=== PATIENT | female | born 1940 | race Caucasian/White ===

== ENCOUNTER → 2016-09-01 | Outpatient (CLI) | payer MEDICARE, BC ==
--- NOTE | 2016-09-01 16:37 | RAD ---
AP and lateral left foot radiographs 09/01/2016 Clinical history: Medial left foot pain for one month. AP and lateral digital radiographs of the left foot were obtained. There is diffuse osteopenia of the visualized bony structures. No fracture or dislocation of the left foot is seen. Mild to moderate degenerative changes are seen scattered throughout the interphalangeal joints of the left foot. Moderate enthesophyte formation is seen involving the posterior left calcaneus. Impression: Degenerative changes are seen involving the left foot as outlined above. No acute osseous abnormality is seen.
== END | disposition home or self-care (01) ==
LOC: DXRADRC 11:09
PROVIDERS: ATTEND Physician Assistant Medical
DX: M19.072 Primary osteoarthritis, left ankle and foot (principal); M85.80 Other specified disorders of bone density and structure, unspecified site
CPT/HCPCS: 73620

== ENCOUNTER → 2017-03-02 | Outpatient (CLI) | payer MEDICARE, BC ==
[2017-03-02 10:39] LABS: BACTERIA,URINE FEW /HPF (0-FEW); BILIRUBIN,URINE NEG (NEG); CLARITY,URINE BLOODY; COLOR,URINE RED; GLUCOSE,URINE NEG (NEG); NITRITE,URINE NEG (NEG); RBC,URINE TNTC /HPF (0-2); SQUAMOUS EPITHELIAL CELL,UR OCC /LPF; UROBILINOGEN,URINE 0.2 mg/dL (0.2 mg/dL)
== END | disposition home or self-care (01) ==
LOC: LAB 09:30
PROVIDERS: ATTEND Family Medicine
DX: R30.0 Dysuria (principal)
CPT/HCPCS: 81001; 87086

== ENCOUNTER → 2019-05-02 | Outpatient (CLI) | payer MEDICARE, BC ==
--- NOTE | 2019-05-02 16:25 | RAD ---
CHEST PA LATERAL History: Cough, low-grade fever Comparison: None available Findings: 2 views of the chest are submitted. There are left axillary clips. Heart size is within normal limits. There is no dependent pleural fluid or pneumothorax. There is no lobar consolidation. There is mild reticular opacity of the mid and inferior right hemithorax. Impression: 1. No lobar consolidation is identified by radiograph. There is some reticular opacity on the right, may be component of mild fibrotic change and/or atelectasis. Electronically signed by: Jim Duke MD (05/02/2019 4:22 PM) [id number]
== END | disposition home or self-care (01) ==
LOC: PMG 15:13
PROVIDERS: ATTEND Physician Assistant
DX: R05 Cough (principal); R50.9 Fever, unspecified
CPT/HCPCS: 71046

== ENCOUNTER → 2020-01-25 | Outpatient (CLI) | payer MEDICARE, BC ==
--- NOTE | 2020-01-25 08:32 | RAD ---
EXAM: Abdomen sonogram. HISTORY: Pain. TECHNIQUE: Sonographic imaging of the abdomen was performed. COMPARISON: None. FINDINGS: The liver is normal in size. There is hepatic steatosis. No focal hepatic lesion is seen. There is a phrygian cap within the gallbladder, a normal variant. The gallbladder is otherwise unremarkable. The right kidney is normal in size. The pancreas is obscured due to bowel gas. The inferior cava is patent. IMPRESSION: 1. Hepatic steatosis. 2. Obscured pancreas due to bowel gas. Electronically signed by: Venice Castanon MD (01/25/2020 8:29 AM) [id number]
== END ==
LOC: US 07:38
PROVIDERS: ATTEND Physician Assistant Medical
DX: K76.0 Fatty (change of) liver, not elsewhere classified (principal)
CPT/HCPCS: 76705

== ENCOUNTER → 2020-03-04 | Outpatient (CLI) | payer MEDICARE, BC ==
--- NOTE | 2020-03-08 19:48 | RAD ---
Examination: MG DIGITAL MAMMO SCREENING UNILT+AMELIA History: Reason: SCREENING MAMMOGRAM 3D /left mastectomy: Comparison/Correlation: 02/21/2015, 02/27/2016, 03/02/2018, 03/03/2019 Technique: Routine right digital mammogram views were obtained. CAD was utilized. Tomosynthesis utili zed. Findings: Breast Tissue Density B : There are scattered areas of fibroglandular density. There are no dominant masses, suspicious microcalcifications, or architectural distortion. IMPRESSION: No mammographic evidence of malignancy. Recommend routine screening. BI-RADS category 1: Negative. The images were reviewed with computer aided detection. Patient information is entered into the reminder system with a target due date for the next screening mammogram. Mammography is the most sensitive method for finding small breast cancers, but it does not detect the m all and is not a substitute for careful clinical examination. A negative mammogram does not negate a clinically suspicious finding and should not result in delay in biopsying a clinically suspicious a bnormality. "Our facility is accredited by the [employer] Mammography Program." Electronically signed by: Donald Jett MD (03/08/2020 7:45 PM) [id number]
== END ==
LOC: MAMMO 10:07
PROVIDERS: ATTEND Physician Assistant Medical
DX: Z12.31 Encounter for screening mammogram for malignant neoplasm of breast (principal)
CPT/HCPCS: 77063; 77067

== ENCOUNTER → 2020-04-26 | Outpatient (CLI) | payer MEDICARE, BC ==
--- NOTE | 2020-04-26 09:54 | RAD ---
XR RIBS MIN 3 VIEWS LT W/PA CHEST 04/26/2020 9:05 AM INDICATION: Left-sided chest pain 1 week. History of breast cancer for 20 years COMPARISON: Chest radiograph 05/02/2019 TECHNIQUE: Portable frontal view of the chest is provided. 3 views the left ribs are provided. FINDINGS: The cardiomediastinal silhouette is within normal limits. There is a new small left pleural effusion with adjacent compressive atelectasis versus infiltrate. Patchy nodular airspace disease identified i n the left midlung. Further characterization with chest CT could be of benefit. Left axillary clips a re noted. No pulmonary vascular congestion or pneumothorax. No suspicious osseous abnormality. No acutely displaced left-sided rib fracture. IMPRESSION: 1. Small pleural effusion with adjacent compressive atelectasis versus infiltrate. Patchy nodular air space disease identified in the left midlung. Further evaluation with chest CT is recommended with co ntrast. 2. No acutely left-sided rib fracture. Electronically signed by: Solange Patel MD (04/26/2020 9:52 AM) [facility]
== END ==
LOC: PMG 08:54
PROVIDERS: ATTEND Nurse Practitioner Family
DX: J90 Pleural effusion, not elsewhere classified (principal)
CPT/HCPCS: 71101

== ENCOUNTER → 2020-04-30 | Outpatient (CLI) | payer MEDICARE, BC ==
[~2020-04-30] MED LIST: IOHEXOL 300 MG/ML 75 ML VIAL. IV ONE
--- NOTE | 2020-05-01 06:17 | RAD ---
PQRS Compliance Statement: One or more of the following individualized dose reduction techniques were utilized for this examinat ion: 1. Automated exposure control 2. Adjustment of the mA and/or kV according to patient size 3. Use of iterative reconstruction technique CT THORAX WO/W 04/30/2020 3:35 PM Indication: Left-sided chest pain. History of breast cancer 20 years ago. COMPARISON: Chest radiograph 04/26/2020 TECHNIQUE: Multiple axial CT images of the chest were obtained before and after the administration of 75 cc nonionic contrast. Coronal and sagittal reformats are provided. FINDINGS: Thyroid gland is normal in appearance. Nonenlarged mediastinal lymph nodes are present. Calcified lef t hilar lymph nodes suggest sequela prior granulomatous exposure. Left superior mediastinal lymph nod e measures 6 mm (series 7, image 7). Heart size within normal limits. There is no pericardial effusio n. Ascending thoracic aorta is ectatic measuring up to 4.0 cm. Thoracic esophagus is normal in appear ance. Visualized portions of the upper abdomen are normal. No suspicious osseous abnormality. No acut jaguar displaced left-sided rib fracture. There is a moderate sized left pleural effusion with adjacent compressive atelectasis versus infiltrate. Mild interstitial prominence may be associated with inters titial edema versus interstitial pneumonitis. Mild centrilobular pulmonary emphysema. Bandlike nodula r opacities in the right upper lung abutting the major fissure measure up to 1.6 x 1.3 cm. There is a solid noncalcified pulmonary nodule in the right lower lobe measuring 1.2 cm (series 7, image 55). S ubpleural solid noncalcified pleura nodule in the lateral right lower lobe measures 7 mm (series 7, i mage 50). Left mastectomy changes are present. Left axillary reina dissection. IMPRESSION: 1. Solid noncalcified pulmonary nodule in the right lower lobe measures 1.2 cm. Further characterizat ion with PET/CT could be of benefit. Differential considerations include infectious/inflammatory pneu monitis versus metastatic disease or primary lung malignancy. 2. Ill-defined bandlike opacities in the right upper lobe abutting the major fissure measure up to 1. 6 x 1.3 cm. This may be infectious/inflammatory although metastatic disease remains a differential co nsideration. 3. Moderate left pleural effusion with adjacent compressive atelectasis versus infiltrate. 4. No pathologically enlarged thoracic lymph nodes. Electronically signed by: Solange Patel MD (05/01/2020 6:15 AM) [facility]
== END ==
LOC: CT 14:54
PROVIDERS: ATTEND Nurse Practitioner Family
DX: R91.1 Solitary pulmonary nodule (principal); J94.8 Other specified pleural conditions; Z90.12 Acquired absence of left breast and nipple; Z85.3 Personal history of malignant neoplasm of breast
CPT/HCPCS: 71270; Q9967

== ENCOUNTER 2020-05-07 17:42 | Emergency (ER) | payer MEDICARE, BC ==
[~2020-05-07] VITALS: Ht 170.2 cm; Wt 107.5 kg
[2020-05-07 18:43] LABS: BASO % 0 % (0-3); EOS % 0 % (0-3); HEMATOCRIT 42.6 % (36.0-47.0); HEMOGLOBIN 13.8 g/dL (12.0-15.5); LYMPH # 1.5 x10^3/uL (1.0-4.8); LYMPH % 13 % (24-48); MEAN CORPUSCULAR HEMOGLOBIN 30 pg (25-35); MEAN CORPUSCULAR HGB CONC 32 g/dL (31-37); MEAN CORPUSCULAR VOLUME 91 fL (79-100); MONO # 0.4 x10^3/uL (0.0-1.1); MONO % 4 % (0-9); NEUT % 83 % (31-73); PLATELET COUNT 579 x10^3/uL (140-400); RED BLOOD COUNT 4.68 x10^6/uL (3.50-5.40); RED CELL DISTRIBUTION WIDTH 13.6 % (11.5-14.5); WHITE BLOOD COUNT 10.9 x10^3/uL (4.0-11.0)
[2020-05-07 19:01] LABS: CALCIUM 9.9 mg/dL (8.5-10.1); CREATININE 1.1 mg/dL (0.6-1.0); GFR 47.8; POTASSIUM 4.2 mmol/L (3.5-5.1)
[2020-05-07 19:13] LABS: ALBUMIN 2.9 g/dL (3.4-5.0); ALBUMIN/GLOBULIN RATIO 0.6 (1.0-1.7); TOTAL BILIRUBIN 0.3 mg/dL (0.2-1.0); TOTAL PROTEIN 7.4 g/dL (6.4-8.2)
[2020-05-07] MEDS ORDERED: FUROSEMIDE 40 MG/4 ML VIAL IVP ONE (19:30)
--- NOTE | 2020-05-07 19:30 | RAD ---
XR CHEST 1V History: Reason: shortness of breath / Spl. Instructions: / History: Comparison: April 26, [address] April 30, 2020 Findings: Large left pleural effusion with adjacent opacities. Hyperinflation with emphysematous changes. No pn eumothorax. Heart size is obscured. Postoperative changes left axilla. Impression: 1. Increased large left pleural effusion with adjacent opacity, may represent atelectasis or consoli dation. Electronically signed by: Alonso Montelongo DO (05/07/2020 7:27 PM) [facility]
--- NOTE | 2020-05-07 19:42 | PHYS DOC ---
Past History Past Medical History: Cancer, Heart Disease, Other Additional Past Medical Histor: Possible new onset CHF Past Surgical History: Angioplasty, Appendectomy, Hysterectomy, Knee Replacement Additional Past Surgical Histo: mastectomy Alcohol Use: None Adult General Chief Complaint Chief Complaint: SHORTNESS OF BREATH HPI HPI Patient is an 79-year-old female with a past medical history significant for CAD, status post stents on aspirin and Plavix who presents to the emergency department with a chief complaint of shortness of breath. States it started about 2 to 3 days ago and has been getting worse over the last day or so. Endorses dyspnea on exertion, and edema as well as orthopnea but no PND. States that she thinks she has gained a little bit of weight and her urine output has decreased over the last day. Denies headache, fevers, chest pain, abdominal pain, nausea, vomiting, dysuria, hematuria, diarrhea or blood in the stool. States he is taking all of her medications as prescribed. Denies any recent travel, known ill contacts, Covid/flu symptoms. States he has been otherwise eating and drinking normally and making normal stool. Review of Systems Review of Systems Review of systems otherwise unremarkable except noted in HPI Current Medications Current Medications Current Medications Medications (Trade) Dose Ordered Sig/Denzel Start Time Stop Time Status Last Admin Dose Admin Furosemide (Lasix) 20 mg 1X ONCE 05/07/20 19:30 05/07/20 19:33 DC Levofloxacin/ Dextrose 150 ml @ 100 mls/hr 1X ONCE 05/07/20 19:30 05/07/20 20:59 Allergies Allergies Allergies Coded Allergies Type Severity Reaction Last Updated Verified No Known Drug Allergies 05/07/20 No Physical Exam Physical Exam Constitutional: Well developed, well nourished, no acute distress, non-toxic appearance. [] HENT: Normocephalic, atraumatic, bilateral external ears normal, oropharynx moist, no oral exudates, nose normal. [] Eyes: conjunctiva normal, no discharge. [] Neck: Normal range of motion, no tenderness, Cardiovascular:Heart rate regular rhythm, no murmur [] Lungs & Thorax: Global rhonchi with tachypnea and hypoxia Abdomen: soft, no tenderness, no masses, no pulsatile masses. [] Skin: Warm, dry, no erythema, no rash. [] Back: No tenderness, Extremities: No tenderness, no cyanosis, no clubbing, ROM intact, no edema. [] Neurologic: Alert and oriented X 3, normal motor function, normal sensory f unction, no focal deficits noted. [] Psychologic: Affect normal, judgement normal, mood normal. [] Current Patient Data Vital Signs Vital Signs Date Time Temp Pulse Resp B/P (MAP) Pulse Ox O2 Delivery O2 Flow Rate FiO2 05/07/20 17:50 98.0 90 26 171/97 (121) 89 Room Air Lab Results Laboratory Tests Test 05/07/20 18:20 White Blood Count 10.9 x10^3/uL (4.0-11.0) Red Blood Count 4.68 x10^6/uL (3.50-5.40) Hemoglobin 13.8 g/dL (12.0-15.5) Hematocrit 42.6 % (36.0-47.0) Mean Corpuscular Volume 91 fL (79-100) Mean Corpuscular Hemoglobin 30 pg (25-35) Mean Corpuscular Hemoglobin Concent 32 g/dL (31-37) Red Cell Distribution Width 13.6 % (11.5-14.5) Platelet Count 579 x10^3/uL (140-400) H Neutrophils (%) (Auto) 83 % (31-73) H Lymphocytes (%) (Auto) 13 % (24-48) L Monocytes (%) (Auto) 4 % (0-9) Eosinophils (%) (Auto) 0 % (0-3) Basophils (%) (Auto) 0 % (0-3) Neutrophils # (Auto) 9.0 x10^3uL (1.8-7.7) H Lymphocytes # (Auto) 1.5 x10^3/uL (1.0-4.8) Monocytes # (Auto) 0.4 x10^3/uL (0.0-1.1) Eosinophils # (Auto) 0.0 x10^3/uL (0.0-0.7) Basophils # (Auto) 0.0 x10^3/uL (0.0-0.2) Sodium Level 138 mmol/L (136-145) Potassium Level 4.2 mmol/L (3.5-5.1) Chloride Level 100 mmol/L (98-107) Carbon Dioxide Level 29 mmol/L (21-32) Anion Gap 9 (6-14) Blood Urea Nitrogen 33 mg/dL (7-20) H Creatinine 1.1 mg/dL (0.6-1.0) H Estimated GFR (Cockcroft-Gault) 47.8 BUN/Creatinine Ratio 30 (6-20) H Glucose Level 214 mg/dL (70-99) H Calcium Level 9.9 mg/dL (8.5-10.1) Total Bilirubin 0.3 mg/dL (0.2-1.0) Aspartate Amino Transferase (AST) 26 U/L (15-37) Alanine Aminotransferase (ALT) 15 U/L (14-59) Alkaline Phosphatase 70 U/L (46-116) Troponin I Quantitative < 0.017 ng/mL (0-0.055) FT-Fwp-P-Type Natriuretic Peptide 171 pg/mL (0-449) Total Protein 7.4 g/dL (6.4-8.2) Albumin 2.9 g/dL (3.4-5.0) L Albumin/Globulin Ratio 0.6 (1.0-1.7) L EKG EKG EKG with a rate of 91, QRS of 84, QTc of 427, no STEMI [] Radiology/Procedures Radiology/Procedures [] Findings: Large left pleural effusion with adjacent opacities. Hyperinflation with emp hysematous changes. No pneumothorax. Heart size is obscured. Postoperative changes left axilla. Impression: 1. Increased large left pleural effusion with adjacent opacity, may represent atelectasis or consolidation. Electronically signed by: Alonso Montelongo DO (05/07/2020 7:27 PM) [facility] Heart Score Risk Factors: Risk Factors: DM, Current or recent (<one month) smoker, HTN, HLP, family history of CAD, obesity. Risk Scores: Risk Factors: DM, Current or recent (<one month) smoker, HTN, HLP, family history of CAD, obesity. Course & Med Decision Making Course & Med Decision Making Patient is an 79-year-old female who presents with 2 to 3 days of shortness of breath Vital signs notable for tachypnea and hypoxia on room air. Patient placed on 2 L nasal cannula. Physical exam noted above. EKG noted above with no STEMI. Troponin normal. BNP normal. Chest x-ray notable for increased large left pleural effusion with adjacent opacity suggestive of consolidation. Blood cultures obtained, started on antibiotics and given Lasix. Discussed all findings with patient and recommended admission to the hospital for continued evaluation and treatment of her pleural effusion/pneumonia. Family grateful, verbalized understanding and agreed with plan of admission. [] Dragon Disclaimer Dragon Disclaimer This electronic medical record was generated, in whole or in part, using a voice recognition dictation system. Departure Departure: Impression: Primary Impression: Pneumonia Additional Impressions: Pleural effusion Shortness of breath Hypoxia Disposition: 02 DC/TRF OTHER SHORT TERM HOS Admitting Physician: Juan Milligan Condition: IMPROVED Referrals: YARELIS PALOMINO (PCP) Problem Qualifiers BROCK HOLT MD May 07, 2020 19:42
[2020-05-07 21:33] VITALS: BP 122/73
[2020-05-07 22:09] LABS: BILIRUBIN,URINE NEG (NEG); CLARITY,URINE CLEAR; COLOR,URINE COLORLESS; GLUCOSE,URINE NEG (NEG); UROBILINOGEN,URINE 0.2 mg/dL (0.2 mg/dL)
[2020-05-07 22:10] LABS: BACTERIA,URINE 0 /HPF (0-FEW); NITRITE,URINE NEG (NEG); RBC,URINE 0 /HPF (0-2); SQUAMOUS EPITHELIAL CELL,UR OCC /LPF; WBC,URINE 0 /HPF (0-4)
--- NOTE | 2020-05-08 12:07 | EKG ---
[address] [address] Test Date: 2020-05-07 Test Time: 18:40:32 Pat Name: HOMER DILLON Department: Room: Gender: F Online Media Director: FLOR : 1940 Requested By: BROCK HOLT Order Number: [id number] Reading MD: Measurements Intervals [place] Rate: 91 P: 39 VT: 138 QRS: 18 QRSD: 84 T: -9 QT: 346 QTc: 427 Interpretive Statements SINUS RHYTHM VENTRICULAR PREMATURE COMPLEX(ES) R-S TRANSITION ZONE IN V LEADS DISPLACED TO THE RIGHT ABNORMAL ECG RI6.02 No previous ECG available for comparison
== END 2020-05-08 00:14 | disposition short-term general hospital (02) ==
LOC: ER 17:42
DX: J18.9 Pneumonia, unspecified organism (principal); J90 Pleural effusion, not elsewhere classified; R09.02 Hypoxemia; I25.10 Atherosclerotic heart disease of native coronary artery without angina pectoris; Z95.5 Presence of coronary angioplasty implant and graft
CPT/HCPCS: 36415; 71045; 80053; 81001; 83880; 84484; 85025; 93005; 96365; 96375; 99285; J1940; J1956

== ENCOUNTER → 2020-05-28 | Outpatient (CLI) | payer MEDICARE, BC ==
[2020-05-07 21:33] VITALS: BP 122/73
--- NOTE | 2020-05-28 13:43 | RAD ---
ADDENDUM #1 Critical results were discussed by Dr. Duffy by phone with Dr. Milligan at 1:45 PM on 05/28/2020. Electronically signed by: Shabana Duffy MD (05/28/2020 1:45 PM) [id number] ORIGINAL REPORT EXAM: CT CHEST WITHOUT CONTRAST HISTORY: Left-sided malignant pleural effusion, drained today COMPARISON: Chest radiograph 05/07/2020 TECHNIQUE: Helical CT of the chest performed without contrast. Coronal and sagittal reformats were o btained. One or more of the following individualized dose reduction techniques were utilized for this examinat ion: 1. Automated exposure control 2. Adjustment of the mA and/or kV according to patient size 3. Use of iterative reconstruction technique. FINDINGS: Thyroid gland and thoracic inlet: Normal. Heart and great vessels: Heart is normal in size. There are coronary artery calcifications. Trace per icardial effusion. Mediastinum and mikala: There are small mediastinal and hilar lymph nodes. Lungs and pleura: There is a new large left hydropneumothorax and partial collapse or incomplete reex pansion of the left lung, particularly the lower lobe. A new left Pleurx drain is in place terminatin g in the lateral left lung base within the air component of the hydropneumothorax. There is a small l ayering fluid component posteriorly and several loculated pleural fluid collections along the anterio r mediastinum, the largest measuring up to 3.5 cm. There are multiple pulmonary nodules in the right lung. Some have increased in size including a spicu lated right upper lobe pulmonary nodule abutting the major fissure, measuring 1.7 x 1.9 cm. Nodularit y and pleural thickening along the right major fissure adjacent to this has also mildly increased. Th ere are multiple fissural and subpleural nodules. Chest wall and axillae: No axillary lymphadenopathy. There are surgical changes of left mastectomy. Upper abdomen: There is sludge in the gallbladder. Bones: A sclerotic lesion in the T7 vertebral body and unchanged. IMPRESSION: 1. New large left hydropneumothorax post placement of a pleurax catheter. The pleural catheter tip i s positioned within the gas component of the hydropneumothorax laterally. There is a small layering f luid component posteriorly and a few small loculated pleural fluid components anteromedially. There i s partial collapse or incomplete reexpansion of the left lung, particularly the lower lobe. 2. Multiple right pulmonary nodules, some which have increased in size. 3. Unchanged T7 sclerotic bone lesion. A voice message was left for Dr. Milligan and results were discussed with the nurse at the patient's [facility] home at 1:30 pm on 05/28/2020. Electronically signed by: Shabana Duffy MD (05/28/2020 1:40 PM) [id number]
== END ==
LOC: CT 12:01
PROVIDERS: ATTEND Internal Medicine
DX: J94.8 Other specified pleural conditions (principal); R91.8 Other nonspecific abnormal finding of lung field; J92.9 Pleural plaque without asbestos; J91.0 Malignant pleural effusion; K82.8 Other specified diseases of gallbladder; I25.10 Atherosclerotic heart disease of native coronary artery without angina pectoris; M89.8X8 Other specified disorders of bone, other site; Z90.12 Acquired absence of left breast and nipple
CPT/HCPCS: 71250